=== PATIENT | female | born 1945 | race Caucasian/White ===

== ENCOUNTER 2017-05-30 06:50 | Day surgery (SDC) | payer OTHER ==
[~2017-05-30] VITALS: Ht 180.3 cm; Wt 127.0 kg
[~2017-05-30 06:50] MED LIST: AMIO200T33 PO; ASPI-492 PO; BACL10TA PO; BENA40TA7 PO; CLON0.1T PO; COEN100C15 PO; EZET10TA2 PO; FURO40TA4 PO; ISOS30TA4 PO; MULTTAB OR; NIF30XLT PO; RIVA20TA PO; ROSU40TA PO; TURMERIC PO
[2017-05-30] MEDS ORDERED: IODIXANOL 320MG/ML 100ML BTL IV ONE (07:13)
[2017-05-30] MEDS ORDERED: LIDOCAINE 2%HCL (LOCAL ANESTH.) INJ 20ML MDV ONE (07:13)
[2017-05-30] MEDS ORDERED: ANGIOMAX 250 MG VIAL IV ONE (08:02)
[2017-05-30] MEDS ORDERED: SODIUM CHL 0.9% 0 ML ONE (08:02)
[2017-05-30] MEDS ORDERED: MIDAZOLAM HCL 1MG/1ML-2 ML VIAL ONE (08:02)
[2017-05-30] MEDS ORDERED: VERAPAMIL 2.5MG/ML INJ 2ML VIAL IV ONE (08:03)
[2017-05-30] MEDS ORDERED: fentaNYL CITRATE 100 MCG/2 ML VL ONE (08:03)
[2017-05-30] MEDS ORDERED: IOHEXOL 350 MG/ML 100ML IJ ONE (08:32)
[2017-05-30] MEDS ORDERED: HEPARIN SODIUM (PORCINE) 5000 UNITS/ML 1ML VIAL ONE (08:44)
== END 2017-05-30 10:55 | disposition home or self-care (01) ==
LOC: CATH 06:50
PROVIDERS: ATTEND Internal Medicine
DX: R94.39 Abnormal result of other cardiovascular function study (principal); I48.91 Unspecified atrial fibrillation; D18.00 Hemangioma unspecified site
CPT/HCPCS: 93458; C1769; C1894; J1644; J2250; J3010; J7030; Q9967; 99152; 99153

== ENCOUNTER 2020-06-14 12:56 | Inpatient (IN) | payer OTHER ==
[~2020-06-14] VITALS: Ht 180.3 cm; Wt 133.0 kg
[~2020-06-14 12:56] MED LIST changes: -EZET10TA2 PO; +EZET10TA22 PO; +MULT-732 OR; -MULTTAB OR; -NIF30XLT PO; +NIFE1TAB36 PO
[2020-06-14 14:30] LABS: Basophils # (auto) 0.1 10 ^3/uL (0-0.2); Basophils % (auto) 0.5 % (0.0-2.0); Eosinophils # (auto) 0 10 ^3/uL (0-0.8); Hemoglobin 12.6 g/dL (12.2-16.2); Lymphocytes # (auto) 1.4 10 ^3/uL (0.4-5.4); Lymphocytes % (auto) 9.2 % (10.0-50.0); Mean Corpuscular Hemoglobin 33.3 pg (28.0-32.0); Mean Corpuscular Hgb Conc. 34.2 g/dL (32.0-36.0); Mean Corpuscular Volume 97.2 fL (80.0-100.0); Monocytes # (auto) 1.2 10 ^3/uL (0-1.3); Monocytes % (auto) 7.9 % (0.0-12.0); Neutrophils # (auto) 12.7 10 ^3/uL (1.6-8.6); Neutrophils % (auto) 82.4 % (37.0-80.0); Nucleated Red Blood Cells % 0.1 %; Platelet Count (auto) 193 10^3/uL (140-450); Red Cell Distribution Width 14.3 % (11.8-14.3); White Blood Cell 15.5 10^3/uL (4.4-10.8)
[2020-06-14 14:47] LABS: Albumin 3.6 g/dL (3.4-5.0); Anion Gap 5 (5-15); Blood Urea Nitrogen 22 mg/dL (7-18); Calcium 8.6 mg/dL (8.5-10.1); Carbon Dioxide 27 mmol/L (21-32); Chloride 103 mmol/L (98-107); Glucose 174 mg/dL (74-106); Potassium 4.1 mmol/L (3.5-5.1); Sodium 135 mmol/L (136-145)
[2020-06-14 14:53] LABS: Alanine Aminotransferase 30 U/L (13-56); Alkaline Phosphatase 74 U/L (45-117); Aspartate Aminotransferase 18 U/L (15-37); BUN/Creatinine Ratio 17.5; GFR African American 53 mL/min; GFR Non-African American 44 mL/min; Total Protein 6.8 g/dL (6.4-8.2)
[2020-06-14 16:26] LABS: INR 1.39 (0.9-1.15); Partial Thromboplastin Time 39.1 sec (23.0-31.2)
[2020-06-14] MEDS ORDERED: cefTRIAXone 1GM/50ML D5W 50 ML IV ONE (16:45)
[2020-06-14] MEDS ORDERED: FUROSEMIDE 40 MG/4 ML VIAL IV ONE (18:00)
[2020-06-14] MEDS ORDERED: traMADol HCL 50 MG TAB PO PRN (19:00)
[2020-06-14] MEDS ORDERED: LACTULOSE 20Gm/30ML SOLN PO PRN ×2 (19:00)
[2020-06-14] MEDS ORDERED: ACETAMINOPHEN 500 MG TAB PO PRN (19:00)
[2020-06-14] MEDS ORDERED: DEXTROSE (50%) 50ML SYRG IV PRN (19:00)
[2020-06-14] MEDS ORDERED: MORPHINE SULF INJ 2 MG/ML SYRINGE 1ML IV PRN ×2 (19:00)
[2020-06-14] MEDS ORDERED: NITROGLYCERIN 0.4 MG SL TAB SL PRN (19:00)
[2020-06-14] MEDS ORDERED: ALBUTEROL SULF 2.5 MG/0.5ML(0.5%) NEB SOLN NEB PRN (19:00)
[2020-06-14] MEDS ORDERED: ONDANSETRON HCL 4 MG/2 ML VIAL IV PRN (19:00)
[2020-06-14] MEDS: ALBUTEROL SULF HFA 90MCG INH 200DOSE IN SCH (20:09)
[2020-06-14] MEDS: BUDESONIDE (INHALATION) 180 MCG IH IN SCH (20:09)
[2020-06-14] MEDS: SODIUM CHLOR 0.9% PF (SALINE LOCK) 10ML VIAL/SYR IV SCH (21:33)
[2020-06-14] MEDS: ISOSORBIDE MONONITRATE ER 60 MG TAB PO SCH (21:34)
[2020-06-14] MEDS: BACLOFEN 10 MG TAB PO SCH (21:35)
[2020-06-14] MEDS: DexAMETHasone SOD PHOS 10MG/1ML VIAL INJ IV SCH (21:36)
[2020-06-14] MEDS: BENAZEPRIL HCL 10 MG TAB PO SCH (21:40)
[2020-06-14] MEDS: InsuLIN REG 1unit/0.01ml Soln (100units/ml) SC SCH (21:49)
[2020-06-14] MEDS: ACCU-CHEK COMFORT CURVE STRIP VI SCH (21:51)
[2020-06-14] MEDS: ALBUTEROL SULF 2.5 MG/0.5ML(0.5%) NEB SOLN NEB SCH (23:21)
[2020-06-14] MEDS: IPRATROPIUM BROM 0.5 MG/2.5ML INH SOL NEB SCH (23:21)
[2020-06-14 23:35] VITALS: BP_SYST 110; BP_DIAS 60; BP_DIAS 61
--- NOTE | 2020-06-14 23:35 | NUR ---
ARRIVAL NOTE PT arrived via wheel chair. pt transferred self to hospital bed. pt is on room air.
[2020-06-15] VITALS (7 sets, daily range): BP systolic 109–141; BP diastolic 67–81
--- NOTE | 2020-06-15 00:10 | NUR ---
Hospitalist Desmond new orders received: Cardio consult, BNP lab value in the AM, and coreg 3.175 tab BID. orders read back and verified. this RN will carry out orders. Addendum: 06/15/20 at 0434 by Nehal Rasheed RN correction, coreg 3.125mg tab BID
[2020-06-15] MEDS ORDERED: CARVEDILOL 3.125 MG TAB PO ONE (00:30)
[2020-06-15] MEDS ORDERED: CLON0.2T PO (01:26)
[2020-06-15] MEDS ORDERED: PANT40TA2 PO (01:26)
[2020-06-15] MEDS ORDERED: TEMA15CA91 GT (01:26)
[2020-06-15] MEDS ORDERED: CHOL20007 PO (01:26)
[2020-06-15] MEDS ORDERED: ASCO500T11 PO (01:26)
[2020-06-15] MEDS ORDERED: SOTA80TA PO (01:26)
[2020-06-15] MEDS ORDERED: DICY10CA PO (01:26)
[2020-06-15] MEDS ORDERED: FOLITAB22 PO (01:26)
[2020-06-15] MEDS ORDERED: ISOS10TA45 PO (01:26)
[2020-06-15] MEDS: TEMAZEPAM 15 MG CAP PO PRN ×2 (01:40→21:50)
[2020-06-15] MEDS: SODIUM CHLOR 0.9% PF (SALINE LOCK) 10ML VIAL/SYR IV SCH ×3 (05:10→21:47)
[2020-06-15] MEDS: ACCU-CHEK COMFORT CURVE STRIP VI SCH ×4 (06:09→21:50)
[2020-06-15] MEDS: InsuLIN REG 1unit/0.01ml Soln (100units/ml) SC SCH ×4 (06:11→21:45)
[2020-06-15 06:53] LABS: Basophils # (auto) 0 10 ^3/uL (0-0.2); Basophils % (auto) 0.4 % (0.0-2.0); Eosinophils # (auto) 0 10 ^3/uL (0-0.8); Hematocrit 36.8 % (36.0-46.0); Hemoglobin 12.7 g/dL (12.2-16.2); Lymphocytes # (auto) 0.7 10 ^3/uL (0.4-5.4); Lymphocytes % (auto) 6.9 % (10.0-50.0); Mean Corpuscular Hemoglobin 33.4 pg (28.0-32.0); Mean Corpuscular Hgb Conc. 34.4 g/dL (32.0-36.0); Monocytes # (auto) 0.2 10 ^3/uL (0-1.3); Monocytes % (auto) 2.5 % (0.0-12.0); Neutrophils # (auto) 8.6 10 ^3/uL (1.6-8.6); Neutrophils % (auto) 90.2 % (37.0-80.0); Nucleated Red Blood Cells % 0.1 %; Platelet Count (auto) 181 10^3/uL (140-450); Red Blood Cells 3.79 10^6/uL (4.0-5.20); Red Cell Distribution Width 14.5 % (11.8-14.3); White Blood Cell 9.6 10^3/uL (4.4-10.8)
[2020-06-15] MEDS: ALBUTEROL SULF HFA 90MCG INH 200DOSE IN SCH ×2 (07:10→13:22)
[2020-06-15] MEDS: ALBUTEROL SULF 2.5 MG/0.5ML(0.5%) NEB SOLN NEB SCH (07:10)
[2020-06-15] MEDS: IPRATROPIUM BROM 0.5 MG/2.5ML INH SOL NEB SCH (07:10)
--- NOTE | 2020-06-15 07:10 | NUR ---
PT'S MN. TX. HELD AT THIS TIME, DUE TO INCREASED HR 126, PT. IN A-FIB, HR=18, SP02= 94% ON RA. BS. ARE CLEAR, NO RESP. DISTRESS NOTED. PT. STATED SHE HASN'T TAKEN ANY OF HER MEDS FOR HEART YET. CONTINUE TO MONITOR RESP. STATUS,HR, AND O2 SATS.
[2020-06-15 07:12] LABS: Albumin 3.4 g/dL (3.4-5.0); BUN/Creatinine Ratio 16.7; Calcium 8.7 mg/dL (8.5-10.1)
--- NOTE | 2020-06-15 07:14 | NUR ---
closing note pt resting in semi fowlers position. no c/o pain or discomfort. no s/s of respiratory distress. endorsed care to day shift ALISA Godinez.
[2020-06-15 07:15] LABS: Bilirubin, Total 1.1 mg/dL (0.2-1.0); Total Protein 7.3 g/dL (6.4-8.2)
--- NOTE | 2020-06-15 07:48 | NUR ---
Opening Shift Note Assumed care of patient, awake and alert. No S/S of distress/SOB or pain. Instructed on POC and to call for assist PRN, will continue to monitor for changes Q1hr and PRN.
[2020-06-15] MEDS: FUROSEMIDE 40 MG/4 ML VIAL IV SCH (09:17)
[2020-06-15] MEDS: Ezetimibe (Zetia) 10 MG TAB PO SCH (09:17)
[2020-06-15] MEDS: ASPirin-EC 81 mg tab PO SCH (09:18)
[2020-06-15] MEDS: POTASSIUM CHL 20 Meq TABLET PO SCH (09:18)
[2020-06-15] MEDS: NIFEdipine ER 30 MG TAB PO SCH (09:19)
[2020-06-15] MEDS: RIVAROXABAN 20 MG TAB PO SCH (09:19)
[2020-06-15] MEDS ORDERED: CHOLECALCIFEROL (VITD3) 2,000 UNIT CAP PO SCH (10:00)
[2020-06-15] MEDS: BUDESONIDE (INHALATION) 180 MCG IH IN SCH (10:00)
[2020-06-15] MEDS ORDERED: CARVEDILOL 3.125 MG TAB PO SCH (10:00)
[2020-06-15] MEDS ORDERED: AMIODARONE HCL 200 MG TAB PO SCH ×2 (10:00→22:00)
[2020-06-15] MEDS ORDERED: ASCORBIC ACID 1,000 MG TAB PO SCH (10:00)
[2020-06-15] MEDS ORDERED: levoFLOXacin 500MG 100 ML IV SCH (10:00)
[2020-06-15] MEDS ORDERED: ASPirin 81 mg TAB PO SCH (10:00)
[2020-06-15] MEDS: DexAMETHasone SOD PHOS 10MG/1ML VIAL INJ IV SCH (12:00)
[2020-06-15] MEDS ORDERED: DIGOXIN (250MCG/ML) 2 ML AMPULE IV ONE (12:45)
[2020-06-15] MEDS ORDERED: SOTALOL HCL 80 MG TAB PO ONE (13:00)
--- NOTE | 2020-06-15 13:32 | NUR ---
Report given to Sarah patient informed about transfer, vs stable, all belonging taken.
--- NOTE | 2020-06-15 13:40 | NUR ---
Pt Arrived on Unit Pt arrived on unit from 232 to 249a. Pt is a/ox4 with no s/s of distress or SOB. Pt was able to ambulate to bed without difficulty. Safety measures initiated with call light within reach, bed in lowest position and side rails up. Will continue to monitor for changes.
--- NOTE | 2020-06-15 18:41 | NUR ---
Respiratory note: ASSESSED PT FOR PRN MED NEB AT THIS TIME, PT DENIES SOB AT THIS TIME, NO RESP DISTRESS NOTED, NO TX INDICATED, PULSE OX 95% ON RA, HR 102, RR 20, BILATERAL BS CLEAR
--- NOTE | 2020-06-15 19:35 | NUR ---
Opening Shift Note Assumed care of patient, awake and alert x 4. No S/S of distress/SOB. Bed is in lowest position and locked. Call light within reach. Board updated. Tele box number matches monitor and leads are in correct placement. Tele box number matches monitor and leads are in correct placement. Instructed on POC and to call for assist PRN, will continue to monitor for changes Q1hr and PRN.
[2020-06-15] MEDS: BENAZEPRIL HCL 10 MG TAB PO SCH (21:48)
[2020-06-15] MEDS: BACLOFEN 10 MG TAB PO SCH (21:49)
[2020-06-15] MEDS: ISOSORBIDE MONONITRATE ER 60 MG TAB PO SCH (21:49)
[2020-06-15] MEDS: SOTALOL HCL 80 MG TAB PO SCH (21:50)
[2020-06-15] MEDS ORDERED: ATORVASTATIN 20 MG TAB PO SCH ×2 (22:00)
[2020-06-16 05:45] VITALS: BP 121/65
[2020-06-16] MEDS: SODIUM CHLOR 0.9% PF (SALINE LOCK) 10ML VIAL/SYR IV SCH (06:47)
[2020-06-16] MEDS: ACCU-CHEK COMFORT CURVE STRIP VI SCH ×2 (06:48→11:45)
[2020-06-16] MEDS: InsuLIN REG 1unit/0.01ml Soln (100units/ml) SC SCH ×2 (06:50→12:16)
[2020-06-16 07:50] VITALS: BP 125/77
[2020-06-16 08:39] VITALS: BP 125/77
[2020-06-16] MEDS: FUROSEMIDE 40 MG/4 ML VIAL IV SCH ×2 (10:00→10:32)
[2020-06-16] MEDS: POTASSIUM CHL 20 Meq TABLET PO SCH (10:30)
[2020-06-16] MEDS: RIVAROXABAN 20 MG TAB PO SCH (10:30)
[2020-06-16] MEDS: NIFEdipine ER 30 MG TAB PO SCH (10:30)
[2020-06-16] MEDS: Ezetimibe (Zetia) 10 MG TAB PO SCH (10:30)
[2020-06-16] MEDS: ASPirin-EC 81 mg tab PO SCH (10:31)
[2020-06-16] MEDS: SOTALOL HCL 80 MG TAB PO SCH (10:31)
--- NOTE | 2020-06-16 10:35 | NUR ---
Scheduled medications given per order. Patient resting comfortably in bed with no complaint of pain. Patient stable.
--- NOTE | 2020-06-16 11:19 | NUR ---
Called and left message for Dr. Landers regarding discharge. Awaiting call back.
--- NOTE | 2020-06-16 11:45 | NUR ---
Checked blood sugar: 180 mg/dl - will cover per sliding scale. Patient resting quietly in bed with no distress noted; stable. Addendum: 06/16/20 at 1218 by DRISS ONEAL RN RN Covered per sliding scale.
[2020-06-16 12:20] VITALS: BP 125/77
[2020-06-16 13:00] VITALS: BP 134/85
--- NOTE | 2020-06-16 13:30 | NUR ---
Discharge instructions Both written and verbal discharge instructions given to patient. Encourage to follow up with PMD in 2 weeks as instructed. Also follow up with global position system technician in 2-3 weeks. Patient has an appointment with Dr. Elkin Montiel on 06-19-20 at 1pm. All questions and concerns addressed. Patient verbalized understanding of all instructions. Medication reconciliation form completed and copy given to patient. IV removed with catheter intact; pressure dressing applied to site. Telemetry unit returned to ICU. All belongings with patient. Patient stable at this time.
--- NOTE | 2020-06-16 14:25 | NUR ---
Discharge Patient taken in stable condition to vehicle via wheelchair with all personal belongings, accompanied by staff mechanical engineer. No distress noted at time of departure.
== END 2020-06-16 14:25 | disposition home or self-care (01) | DRG 291 ==
LOC: ER 12:56 → EDBD 12:56 → TELE 12:57 → TELE-EAST 23:35
PROVIDERS: ADMIT Internal Medicine; ATTEND Hospitalist
DX: I11.0 Hypertensive heart disease with heart failure (principal); J18.9 Pneumonia, unspecified organism; I50.43 Acute on chronic combined systolic (congestive) and diastolic (congestive) heart failure; E11.9 Type 2 diabetes mellitus without complications; I48.91 Unspecified atrial fibrillation; E66.01 Morbid (severe) obesity due to excess calories; I25.10 Atherosclerotic heart disease of native coronary artery without angina pectoris; E78.5 Hyperlipidemia, unspecified; Z20.828 Contact with and (suspected) exposure to other viral communicable diseases; Z82.49 Family history of ischemic heart disease and other diseases of the circulatory system; Z83.3 Family history of diabetes mellitus; Z68.39 Body mass index [BMI] 39.0-39.9, adult
CPT/HCPCS: 36415; 71045; 80053; 82550; 82962; 83036; 83605; 83880; 84443; 84484; 85025; 85379; 85610; 85730; 87040; 87426; 93005; 94640; G0378; J0696; J1100; J1815; J1956